=== PATIENT | female | born 1960 | race Caucasian/White ===

== ENCOUNTER 2023-04-26 13:48 | Outpatient (RCR) | payer OTHER, SELFPAY | END 2023-04-26 23:59 | disposition home or self-care (01) | LOC: RPT 13:48 | PROVIDERS: ATTENDING PHYSICIAN Orthopaedic Surgery; FAMILY PHYSICIAN Family Medicine | DX: Z47.1 Aftercare following joint replacement surgery (principal); Z96.651 Presence of right artificial knee joint; R26.89 Other abnormalities of gait and mobility; Z73.6 Limitation of activities due to disability | CPT/HCPCS: 97010; 97110; 97112; 97140; 97530 ==

== ENCOUNTER 2023-05-17 13:02 | Outpatient (RCR) | payer OTHER, SELFPAY | END 2023-05-17 23:59 | disposition home or self-care (01) | LOC: RPT 13:02 | PROVIDERS: ATTENDING PHYSICIAN Orthopaedic Surgery; FAMILY PHYSICIAN Family Medicine | DX: Z47.1 Aftercare following joint replacement surgery (principal); R26.89 Other abnormalities of gait and mobility; Z73.6 Limitation of activities due to disability; R26.2 Difficulty in walking, not elsewhere classified; M62.81 Muscle weakness (generalized); M25.561 Pain in right knee; Z96.651 Presence of right artificial knee joint | CPT/HCPCS: 97010; 97110; 97112; 97140 ==

== ENCOUNTER → 2023-05-24 06:58 | Outpatient (REF) | payer OTHER, SELFPAY | LOC: HWRAD 06:58 | PROVIDERS: ATTENDING PHYSICIAN Family Medicine | DX: E04.1 Nontoxic single thyroid nodule (principal) | CPT/HCPCS: 76536 ==

== ENCOUNTER → 2023-05-25 06:29 | Outpatient (REF) | payer OTHER, SELFPAY | LOC: MRI 3T 06:29 | PROVIDERS: ATTENDING PHYSICIAN Student in an Organized Health Care Education/Training Program; FAMILY PHYSICIAN Family Medicine | DX: M54.50 Low back pain, unspecified (principal) | CPT/HCPCS: 72148 ==

== ENCOUNTER → 2023-09-15 16:24 | Outpatient (REF) | payer OTHER, SELFPAY | LOC: HWRAD 16:24 | PROVIDERS: ATTENDING PHYSICIAN Family Medicine | DX: M25.551 Pain in right hip (principal); M25.552 Pain in left hip | CPT/HCPCS: 73522 ==

== ENCOUNTER → 2023-09-26 15:17 | Outpatient (REF) | payer OTHER, SELFPAY | LOC: WDC 15:17 | PROVIDERS: ATTENDING PHYSICIAN Family Medicine | DX: Z12.31 Encounter for screening mammogram for malignant neoplasm of breast (principal) | CPT/HCPCS: 77063; 77067 ==

== ENCOUNTER → 2023-12-14 15:56 | Outpatient (REF) | payer OTHER, SELFPAY | LOC: RCS 15:56 | PROVIDERS: ATTENDING PHYSICIAN Internal Medicine Cardiovascular Disease; FAMILY PHYSICIAN Family Medicine | DX: R06.09 Other forms of dyspnea (principal) | CPT/HCPCS: 93306 ==

== ENCOUNTER 2024-01-13 08:33 | Emergency (ER) | payer OTHER, SELFPAY ==
[2024-01-13 08:41] VITALS: BP 159/94
[2024-01-13 08:58] VITALS: BP 127/105
--- NOTE | 2024-01-13 08:59 | ED.GENMED ---
History of Present Illness
<Roney Ambriz MD, Resident - Last Filed: 01/13/24 11:35>
General
Chief Complaint: Heart Rate Problem
Source: patient and records
Time Seen by Provider: 01/13/24 08:55
Travel History
Have you traveled to any high risk areas for coronavirus over the past 14 days?: No
Have you had any contact with someone who has COVID-19?: No
Do you have any symptoms of coronavirus? Fever > 100 degrees, chills, cough, shortness of breath, sore throat, loss of taste or smell, muscle aches, or headache?: No
History of Present Illness
History of Present Illness:
Mira Peraza, 63-year-old female, experienced palpitations, chest tightness, lightheadedness, chills and tremors a few minutes after waking up this morning. Took diazepam which helped subside most of what she was experiencing. Continues to feel
discomfort in her chest. She has experienced similar episodes in the past, and followed up with cardiology; cardiac monitoring did not find arrhythmias. Does state that her current episode of chest tightness feels much worse. No prior history of
cardiovascular disease, DVT/PE, bleeding or clotting disorders. Denies any recent illnesses or changes to her medications.
Past History
<Roney Ambriz MD, Resident - Last Filed: 01/13/24 11:35>
Past History
ED Past Medical History: Arrthythmia (Palpatations), Asthma (Sports induced), GERD, HTN, Psychiatric (Takes effexor for anxiety.) and Other (Vertigo. Degenerative disc disease,)
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 Has had chronic neck pain. Had MRI, Xray, P/T. Has had no problems past
year. Has seen Dr. Caputo originally. Had a checkup of knee and back by in [facility] about 7 mos ago. Had MRI of neck at that time.)
Social History
Tobacco: Non-smoker
Alcohol: Occasional
Personal: Other (Seperated)
Living: with family
Employment: Employed (works at home)
Family History
Family History: Negative Early CAD
Review of Systems
<Roney Ambriz MD, Resident - Last Filed: 01/13/24 11:35>
Review of Systems
All Other Systems: ROS reviewed and negative except as documented in HPI and ROS
Phy Exam
<Roney Ambriz MD, Resident - Last Filed: 01/13/24 11:35>
General Physical Exam
General Presentation: well appearing and no apparent distress
General Skin: warm and dry
General Habitus: normal
General Mental: alert
General Hydration: appears well hydrated
ENT Exam
ENT Exam: EOMI, pharynx normal, neck supple and normocephalic
Eye Exam
Eye Exam: PERRL, cornea clear and conjunctiva normal
Cardiovascular Exam
Cardiovascular Exam: regular rate/rhythm, no edema, no murmur and normal peripheral pulses
Pulmonary Exam
Pulmonary Exam: lungs clear, no respiratory distress, no rales, no crackles, no rhonchi, no stridor, no wheezing and no cough
Gastrointestinal Exam
Gastrointestinal Exam: normal bowel sounds, non tender, soft, no organomegaly, no pulsatile mass and non distended
Neurological Exam
Neurological Exam: alert, oriented x3, no motor deficits and speech normal
Musculoskeletal Exam
Musculoskeletal Exam: full ROM and no edema
Skin Exam
Skin Exam: normal color, warm/dry, no rash and no petechia
Psychiatric Exam
Psychiatric Exam: normal mood/affect
Scores
<Roney Ambriz MD, Resident - Last Filed: 01/13/24 11:35>
PE Wells Score
Pulmonary Embolism Risk Score: 0
Probability of PE: Pt is low risk
<Rick Beltran DO - Last Filed: 01/13/24 13:20>
PE Wells Score
Symptoms of DVT: No
No alternative diagnosis better explains the illness: No
Tachycardia with pulse > 100: No
Immobilization (>=3 days) or surgery within previous 4 weeks: No
Prior history of DVT or pulmonary embolism: No
Presence of hemoptysis: No
Presence of malignancy: No
Pulmonary Embolism Risk Score: 0
Probability of PE: Pt is low risk
Course
<Roney Ambriz MD, Resident - Last Filed: 01/13/24 11:35>
Orders/Labs/Results
Orders:
Orders
01/13/24 08:36
Electrocardiogram (*1) Urgent
Reason for Study: Palpitations
EKG- Treatment ONCE
01/13/24 09:06
Cardiac Monitoring- Treatment ONCE
IV Insert/Care/Rem.- Treatment PRN
01/13/24 09:19
Complete Blood Count/With Diff Urgent
Comprehensive Metabolic Panel Urgent
Troponin I Urgent
01/13/24 09:27
D-Dimer Urgent
Abnormal Lab Results
01/13/24
09:19
Absolute Lymphs (auto) 1.1 L 10^3/uL
(1.2-3.4)
Lymphocytes % 16.3 L %
(20.5-51.1)
Glucose 115 H mg/dl
(70-99)
01/13/24 09:19
01/13/24 09:19
Vital Signs
Initial and Last Documented VS:
Initial Vital Signs
Temp Pulse Resp BP Pulse Ox
98.0 F 78 18 159/94 98
01/13/24 08:41 01/13/24 08:41 01/13/24 08:41 01/13/24 08:41 01/13/24 08:41
Last Documented Vital Signs
Temp Pulse Resp BP Pulse Ox
98.0 F 70 16 153/83 98
01/13/24 08:41 01/13/24 11:02 01/13/24 11:02 01/13/24 11:02 01/13/24 11:02
Janellelt;Rick Beltran, - Last Filed: 01/13/24 13:20>
Orders/Labs/Results
Orders:
Orders
01/13/24 08:36
Electrocardiogram (*1) Urgent
Reason for Study: Palpitations
EKG- Treatment ONCE
01/13/24 09:06
Cardiac Monitoring- Treatment ONCE
IV Insert/Care/Rem.- Treatment PRN
01/13/24 09:19
Complete Blood Count/With Diff Urgent
Comprehensive Metabolic Panel Urgent
Troponin I Urgent
01/13/24 09:27
D-Dimer Urgent
Abnormal Lab Results
01/13/24
09:19
Absolute Lymphs (auto) 1.1 L 10^3/uL
(1.2-3.4)
Lymphocytes % 16.3 L %
(20.5-51.1)
Glucose 115 H mg/dl
(70-99)
01/13/24 09:19
01/13/24 09:19
Vital Signs
Initial and Last Documented VS:
Initial Vital Signs
Temp Pulse Resp BP Pulse Ox
98.0 F 78 18 159/94 98
01/13/24 08:41 01/13/24 08:41 01/13/24 08:41 01/13/24 08:41 01/13/24 08:41
Last Documented Vital Signs
Temp Pulse Resp BP Pulse Ox
98.0 F 70 16 153/83 98
01/13/24 08:41 01/13/24 11:02 01/13/24 11:02 01/13/24 11:02 01/13/24 11:02
<Roney Ambriz MD, Resident - Last Filed: 01/13/24 11:35>
MDM/Problems Addressed
Differential Diagnosis Includes:
panic disorder; generalized anxiety disorder; sinus tachycardia; PE
MDM/Problems Addressed:
Based on the symptoms and previous history of a very similar presentation, likely that this was either an episode of panic disorder/ISIAH or sinus tachycardia. Less likely to be a PE based on unremarkable exam and hemodynamic stability. Patient did
note that the tightness feels worse than before and has slightly persisted even after taking diazepam. No pain with deep inspirations at this time but did have it when the symptoms came on. Will check a d-dimer.
<Roney Ambriz MD, Resident - Last Filed: 01/13/24 11:35>
*Critical Care Note
Total Time (30-74mins, 75-104mins- exclusive of procedures): Not Applicable
ED Attending Note
<Roney Ambriz MD, Resident - Last Filed: 01/13/24 11:35>
-
Portions of this chart may have been created with voice recognition software.� Occasional wrong word or��sound alike� substitutions may have occurred due to the inherent limitations of voice recognition software.
<Rick Beltran, DO - Last Filed: 01/13/24 13:20>
ED Attending Note
Patient seen and examined by attending physician: Yes
I performed a history and physical exam of patient and discussed management with resident, I reviewed resident's note and agree with documented findings and plan of care.: Yes
ED Attending Note:
I agree with Dr. Ambriz's note.
Patient had episode of palpitations today. Symptoms seem mostly resolved now. Mild chest pain at the time. No fever or chills.
General: Awake, Alert, Oriented X3. No acute distress.
Vitals: unremarkable
Head: Atraumatic
Eyes: Pupils equal, EOMI
Throat: Airway intact, no exudates
Neck: Trachea midline
Lungs: Clear and equal b/l
Heart: Regular rate, no murmurs
Neuro: Nonfocal
Extremities: pulses equal b/l, no edema
Patient presents with palpitations. EKG here shows normal sinus rhythm no ischemic changes. Labs are unremarkable. Patient had Holter monitor the past which evidently showed frequent PVCs. Today's episode could be related to PVCs. She could
have had a episode of SVT or A-fib with rapid ventricular response which has now broken back to sinus rhythm. No dysrhythmia noted on the monitor here. Patient stable for discharge home and outpatient follow-up with Dr. Calabrese.
Discharge Plan
Departure
Patient Disposition: Home (Routine Discharge)
Date of Disposition: 01/13/24
Time of Disposition: 10:12
Patient with high blood pressure during this ER visit?: Yes
Condition: Good
Discharge Problem:
Palpitations
Instructions: Panic Disorder (DC), Palpitations ED, BLOOD PRESSURE
Prescriptions:
No Action
valsartan 80 MG tablet
80 mg PO DAILYPRN PRN (Reason: high blood pressure)
famotidine 20 MG tablet
20 mg PO DAILYPRN PRN (Reason: gerd)
montelukast 10 MG tablet
10 mg PO DAILY
naproxen sodium [Aleve] 220 mg Tablet
220 mg PO BIDPRN PRN (Reason: mild pain)
montelukast [Singulair] 10 mg Tablet
10 mg PO HSPRN PRN (Reason: allergies)
diazepam 5 mg Tablet
2.5 mg PO HSPRN PRN (Reason: anixety)
Medical Marijuana
2.5 ml PO HSPRN PRN (Reason: mild pain)
cefuroxime axetil 500 mg tablet
500 mg PO BID 14 Days Qty: 28 0RF
Referrals:
Alejandro Calabrese MD [Active] - Call in 1-3 days for appt
Activity Restrictions/Additional Instructions:
Follow-up with cardiology for further testing and evaluation. Follow-up with your primary. Please return if the symptoms come back and don't improve or if you pass out or feel like you will pass out.
Interventions
Interventions:
*Risk Screen - Suicide Last Done: 01/13/24 08:41
*General Assessment Last Done: 01/13/24 09:08
*Neglect/Abuse Screening Last Done: 01/13/24 08:41
ED- Fall Risk Assessment Last Done: 01/13/24 09:08
*ED COVID-19 Vaccine History Last Done: 01/13/24 08:41
*Nursing Disposition Last Done: 01/13/24 11:02
ED- Cardiac Assessment Last Done: 01/13/24 09:31
ED- Pulmonary Assessment Last Done: 01/13/24 09:31
Discharge Date and Time
Discharge Date/Time: 01/13/24 11:03
Print Language: GREENLANDIC
[2024-01-13 09:00] VITALS: BP 145/83
[2024-01-13 09:07] VITALS: BMI 32.9
--- NOTE | 2024-01-13 09:15 | EDRN ---
Dr. Ambriz (ED Resident) in to see pt.
[2024-01-13 09:28] LABS: % Basophils 0.7 % (0-2); % Eosinophils 2.6 % (0-6); % Immature Granulocytes 0.3 % (0-0.5); % Lymphocytes 16.3 % (20.5-51.1); % Monocytes 8.3 % (1.7-9.3); % Neutrophils 71.8 % (42.2-75.2); Absolute Basophils 0.1 10^3/uL (0-0.2); Absolute Eosinophils 0.2 10^3/uL (0-0.7); Absolute Lymphocytes 1.1 10^3/uL (1.2-3.4); Absolute Monocytes 0.6 10^3/uL (0.1-0.6); Hematocrit 41.5 % (37.0-47.0); Hemoglobin 14.4 g/dL (12.0-16.0); Mean Corp Hgb Conc. 34.7 g/dL (33.0-37.0); Mean Corpuscular Hgb 30.5 pg (27.0-31.0); Mean Corpuscular Volume 87.9 fL (81.0-99.0); Mean Platelet Volume 9.2 fL (7.4-10.4); Nucleated Red Blood Cells % 0 %; Platelet Count 272 10^3/uL (130-400); Red Blood Cell Count 4.72 10^6/uL (4.20-5.40); Red Cell Dist. Width 12.4 % (11.5-14.5)
[2024-01-13 09:44] LABS: ALT (SGPT) 25 U/L (0-35); AST (SGOT) 23 U/L (14-36); Albumin 4.3 g/dl (3.5-5.0); Alkaline Phosphatase 92 U/L (38-126); Blood Urea Nitrogen 17 mg/dl (7-17); Calcium 9.5 mg/dl (8.4-10.2); Carbon Dioxide 24 mmol/L (22-30); Chloride 105 mmol/L (98-107); Estimated Creatinine Clearance 95 ml/min; Glucose 115 mg/dl (70-99); Potassium 3.7 mmol/L (3.5-5.1); Sodium 142 mmol/L (135-145); Total Bilirubin 0.6 mg/dl (0.2-1.3); eGFR > 60.00
[2024-01-13 09:50] LABS: D-Dimer 0.44 ug/mlFEU (0.00-0.50)
--- NOTE | 2024-01-13 09:51 | EDRN ---
Dr. Beltran in to see pt.
[2024-01-13 09:56] LABS: Troponin I < 0.012 ng/ml
[2024-01-13 10:00] VITALS: BP 143/88
--- NOTE | 2024-01-13 10:11 | EDRN ---
Pt denies any pain or tightness at thistime. Pt does state she remains w/ sl SOB. Pt OOB to BR at this time.
--- NOTE | 2024-01-13 10:27 | EDRN ---
in room w/ pt at this time.
[2024-01-13 11:02] VITALS: BP 153/83
== END 2024-01-13 11:03 | disposition home or self-care (01) ==
LOC: EMR 08:33
PROVIDERS: Student in an Organized Health Care Education/Training Program; EMERGENCY PHYSICIAN Emergency Medicine; FAMILY PHYSICIAN Family Medicine
DX: R00.2 Palpitations (principal); R07.89 Other chest pain; I10 Essential (primary) hypertension; J45.909 Unspecified asthma, uncomplicated; Z90.49 Acquired absence of other specified parts of digestive tract; K21.9 Gastro-esophageal reflux disease without esophagitis
CPT/HCPCS: 99284; 80053; 84484; 85025; 85379; 93005

== ENCOUNTER 2024-01-30 08:25 | Day surgery (SDC) | payer OTHER, SELFPAY ==
--- NOTE | 2024-01-30 09:58 | ITS.CL.IMPLP ---
Transport Truck Driver - Implant Loop
Implant Loop
Procedure Report:
Date of Procedure: January 30, 2024
Primary Care Provider: Dr Mrak Blackmon
Primary home delivery driver: Dr Cortez Calabrese
Procedure: Insertable Loop Recorder Implantation
Indication:
Atrial fibrillation
Procedure:
The patient was brought to the procedure area in a fasting state. The anterior chest was prepped and draped in standard sterile fashion. The fourth intercostal space along the left sternal border was identified and this area was anesthetized with 10
mL of 1% lidocaine. After gathering the skin in this area, a small punch incision was made at approx intercostal space 4-5 at left costo-sternal junction using the provided scalpel/punch tool. The loop recorder was loaded into the tunneling device.
A tunnel was created in the subcutaneous tissue at a 45� angle along the coronal plane away from the sternum and towards the left flank. The tunneling device was inverted and the plunger was depressed, inserting the loop recorder into the
subcutaneous space. The tunneling device was removed. Manual pressure provide hemostasis. Adequate signal was confirmed. The skin was closed with steri-strips. The estimated blood loss was < 1 cc. A clean dressing was placed over the wound.
There were no complications.
Implant:
[employer] Reveal LINQ
Conclusion: Uncomplicated implantation of loop recorder.
Recommendation: Routine ILR care.
Copy:
Dr Mark Blackmon
Dr Cortez Barton
== END 2024-01-30 10:50 | disposition home or self-care (01) ==
LOC: CATH 08:25
PROVIDERS: ATTENDING PHYSICIAN Internal Medicine Cardiovascular Disease; FAMILY PHYSICIAN Family Medicine
DX: Z09 Encounter for follow-up examination after completed treatment for conditions other than malignant neoplasm (principal); I48.91 Unspecified atrial fibrillation; K21.9 Gastro-esophageal reflux disease without esophagitis; I10 Essential (primary) hypertension; R07.89 Other chest pain
CPT/HCPCS: 33285; C1764

== ENCOUNTER → 2024-12-10 13:15 | Outpatient (REF) | payer OTHER, SELFPAY | LOC: MRI 3T 13:15 | PROVIDERS: ATTENDING PHYSICIAN Pain Medicine Interventional Pain Medicine; FAMILY PHYSICIAN Family Medicine | DX: M54.12 Radiculopathy, cervical region (principal) | CPT/HCPCS: 72141 ==

== ENCOUNTER → 2024-12-15 07:18 | Outpatient (REF) | payer OTHER, SELFPAY | LOC: MRI 07:18 | PROVIDERS: ATTENDING PHYSICIAN Physician Assistant Medical; FAMILY PHYSICIAN Family Medicine | DX: M79.671 Pain in right foot (principal); M25.571 Pain in right ankle and joints of right foot | CPT/HCPCS: 73718; 73721 ==

== ENCOUNTER → 2024-12-17 19:12 | Outpatient (REF) | payer OTHER, SELFPAY | LOC: WDC 19:12 | PROVIDERS: ATTENDING PHYSICIAN Family Medicine | DX: Z12.31 Encounter for screening mammogram for malignant neoplasm of breast (principal) | CPT/HCPCS: 77063; 77067 ==